=== PATIENT | male | born 1950 | race Caucasian/White ===

== ENCOUNTER 2016-09-07 18:15 | Observation (INO) ==
[2016-09-07] MEDS ORDERED: guaiFENesin/CODEINE 10 ML UDC PO PRN (19:17)
[2016-09-07] MEDS ORDERED: ACETAMINOPHEN 325 MG TABLET PO PRN (19:17)
[2016-09-07] MEDS ORDERED: traZODone HCL 50 MG TABLET PO PRN (19:17)
[2016-09-07] MEDS: SENNOSIDES/DOCUSATE SODIUM 1 TAB TABLET PO SCH ×2 (21:24→21:28)
[2016-09-07] MEDS: HEPARIN 5,000 UNIT/ML VIAL SQ SCH (21:24)
[2016-09-07] MEDS: DOCUSATE SODIUM 100 MG CAPSULE PO SCH ×2 (21:24→21:28)
[2016-09-07] MEDS: 0.9 % SODIUM CHLORIDE 10 ML SYRINGE IV SCH (21:29)
[2016-09-07] MEDS: AMIODARONE HCL 200 MG TABLET PO SCH ×2 (22:18→22:29)
[2016-09-07] MEDS: amLODIPine 10 MG TABLET PO SCH (22:19)
[2016-09-07] MEDS: LISINOPRIL 10 MG TABLET PO SCH ×2 (22:19→22:29)
[2016-09-07] MEDS: CARVEDILOL 12.5 MG TABLET PO SCH ×2 (22:24→22:29)
[2016-09-07] MEDS ORDERED: LISINOPRIL 10 MG TABLET ONE (22:29)
[2016-09-07] MEDS ORDERED: AMIODARONE HCL 200 MG TABLET ONE (22:29)
[2016-09-07] MEDS ORDERED: amLODIPine 5 MG TABLET ONE (22:30)
[2016-09-07] MEDS: ONDANSETRON 4 MG/2 ML VIAL IV PRN (23:10)
[2016-09-08] MEDS: 0.9 % SODIUM CHLORIDE 10 ML SYRINGE IV SCH ×2 (05:40→15:40)
[2016-09-08 06:32] LABS: Mean Cell Volume 95.5 fL (80.0-100.0); Mean Corpuscular HGB Conc 33.1 g/dL (31.0-36.0); Mean Corpuscular Hemoglobin 31.6 pg (26.0-34.0); Platelet Count 233 K/mcL (140-440); RBC 3.49 M/mcL (4.50-5.90); Red Cell Distribution Width 17.2 % (11.5-14.5)
[2016-09-08 07:06] LABS: ALT/SGPT 9 U/l (0-40); Albumin 3.6 gm/dL (3.2-5.2); Albumin/Globulin Ratio 0.8 (1.0-2.3); Alkaline Phosphatase 56 U/L (39-117); Bilirubin,Direct < 0.2 mg/dL (0.0-0.3); Blood Urea Nitrogen 55 mg/dl (8-23); Gamma Glutamyl Transpeptidase 17 U/L (8-61); Magnesium 2.5 mg/dL (1.6-2.5); Phosphorous 6.9 mg/dL (2.7-4.5); Uric Acid 6.2 mg/dL (2.5-8.0)
[2016-09-08 07:48] LABS: Anisocytosis 1+ (NONE SEEN); Eosinophils % (Manual) 1 % (0-7); Lymphocytes % 9 % (15-49); Monocytes % (Manual) 9 % (1-9); Platelet Estimate NORMAL (NORMAL); RBC Morphology ABNORMAL (NORMAL); Segmented Neutrophils % 81 % (38-78)
[2016-09-08] MEDS: ONDANSETRON 4 MG/2 ML VIAL IV PRN (07:50)
[2016-09-08] MEDS: LISINOPRIL 10 MG TABLET PO SCH (08:35)
[2016-09-08] MEDS: amLODIPine 10 MG TABLET PO SCH (08:35)
[2016-09-08] MEDS: MULTIVIT,THER IRON,CA,FA & MIN 1 TABLET PO SCH (08:36)
[2016-09-08] MEDS: CLOPIDOGREL 75 MG TABLET PO SCH (08:36)
[2016-09-08] MEDS: CARVEDILOL 12.5 MG TABLET PO SCH ×2 (08:36→16:51)
[2016-09-08] MEDS: FUROSEMIDE 40 MG TABLET PO SCH ×2 (08:36→23:59)
[2016-09-08] MEDS: AMIODARONE HCL 200 MG TABLET PO SCH ×2 (08:37→16:51)
[2016-09-08] MEDS: HEPARIN 5,000 UNIT/ML VIAL SQ SCH (08:38)
[2016-09-08] MEDS: DOCUSATE SODIUM 100 MG CAPSULE PO SCH (08:40)
[2016-09-08] MEDS ORDERED: NON FORMULARY MEDICATION 1 DOSE MISCELL (Carvedilol [Coreg] 25 MG) PO SCH (09:00)
--- NOTE | 2016-09-08 11:01 | Internal Med Progress Note ---
Medical - PN: Subj Patient information: Note initiated : 09/08/16 at 10:58 am Service Date, if different from initiated Date: [] Patient: Daily,Alfonzo inman 66 y/o M admitted on 09/07/16 for Weakness. Chief Complaint: [] Interval history: 09/[birth year]31-62-kugx-old male with history of ESRD on HD/severe ischemic cardiomyopathy ith EF 20%/diabetes and active smoker admitted with severe weakness and deconditioning and persistent cough for last 2 weeks and deconditioning leading to missed hemodialysis. nephrology consulted ongoing hemodialysis. Infectious workup ongoing. Patient admitted for observation 09/08- patient feeling better after hemodialysis however persistent cough. Await infectious workup. No overnight fever chills nausea vomiting. repeat hemodialysis today. no other concerns expressed by staff. Stable vitals/labs hemodynamics. no acute processes on chest imaging - Constitutional Vitals: Vital Signs Temp Pulse Resp BP Pulse Ox 98.5 F 68 14 146/63 90 09/08/16 07:32 09/08/16 07:32 09/08/16 07:32 09/08/16 07:32 09/08/16 07:34 Period Temp Pulse Resp BP Sys/Serna Pulse Ox Last 24 Hr 97.4 F-98.5 F 68-99 12-20 104-198/63-96 76-98 Intake and Output 09/07/16 09/08/16 09/08/16 21:59 05:59 13:59 Intake Total 360 / 360 Output Total 0 / 0 Balance 360 / 360 Weight 150 lb Intake & Output: Intake & Output 09/07/16 09/08/16 09/08/16 21:59 05:59 13:59 Intake Total 360 / 360 Output Total 0 / 0 Balance 360 / 360 Weight 150 lb Intake: Oral 360 / 360 Output: Void Amount 0 / 0 General appearance: cooperative, no acute distress Exam: grade 2 ESM alert oriented nonlabored breathing Anxious Ulcerated scabs upper extremity Medical - PN: Obj Da - Labs CBC & Chem 7: 09/08/16 04:09 09/08/16 04:20 Labs: Abnormal Lab Results 09/08/16 09/08/16 04:20 04:09 RBC 3.49 L Hgb 11.0 L Hct 33.3 L RDW 17.2 H Seg Neutrophils % 81 H Lymphocytes % 9 L Anisocytosis 1+ A Chloride 90 L Anion Gap 20.0 H BUN 55 H Creatinine 9.3 H* Phosphorus 6.9 H* Globulin 4.3 H Albumin/Globulin Ratio 0.8 L Triglycerides 340 H Meds: Medications Acetaminophen (Tylenol) 650 mg PO Q4-6HP PRN PRN Reason: PAIN/FEVER > 101 [facility] Admin: 09/08/16 08:37 Dose: 200 mg Amlodipine Besylate (Norvasc) 10 mg PO DAILY [facility] Last Admin: 09/07/16 22:19 Dose: 10 mg [facility]ilol ([facility]g) [facility] Last Admin: 09/08/16 08:36 Dose: 25 mg Clopidogrel Bisulfate (Plavix) 75 mg PO DAILY [facility] Last Admin: 09/08/16 08:36 Dose: 75 mg Docusate Sodium (Colace) 100 mg PO BID [facility] Last Admin: 09/08/16 08:40 Dose: Not Given Furosemide (Lasix) 80 mg PO BID [facility] Last Admin: 09/08/16 08:36 Dose: 80 mg Guaifenesin/Codeine Phosphate (Robitussin Ac) 10 ml PO Q4HP PRN PRN Reason: Cough Heparin Sodium (Porcine) (Heparin) 5,000 unit SQ Q12 [facility] Last Admin: 09/08/16 08:38 Dose: 5,000 unit Iron Carb/Multivit/Inspector Scales/Folic Acid (Multivitamin W/Minerals) 1 tab PO DAILY [facility] Last Admin: 09/08/16 08:36 Dose: 1 tab Lisinopril (Zestril) 10 mg PO DAILY [facility] Last Admin: 09/07/16 22:29 Dose: Not Given Ondansetron HCl (Zofran) 4 mg IV Q4-6HP PRN PRN Reason: Nausea And Vomiting Last Admin: 09/08/16 07:50 Dose: 4 mg Senna/Docusate Sodium (Senna Plus Tablet) 1 tab PO HS [facility] Last Admin: 09/07/16 21:28 Dose: Not Given Sodium Chloride (Saline Flush) 10 ml IV Q8 [facility] Last Admin: 09/08/16 05:40 Dose: 10 ml Trazodone HCl (Desyrel) 50 mg PO HSP PRN PRN Reason: Insomnia Medical - PN: A/P - Time Spent With Patient Total time spent is greater than 50% in coordination of care (as documented) at patient's floor/unit and/or counseling patient: 25 - 35 minutes (1) Weakness generalized Status: Acute Assessment and plan: * generalized weakness-physical therapy/ await infectious workup * ESRD on HD-ongoing hemodialysis * Ischemic cardiomyopathy with EF 20%- Coreg/Plavix * Nicotine dependence/COPD * skin lesions- 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
--- NOTE | 2016-09-08 11:30 | History and Physical Report ---
DATE OF ADMISSION: 09/07/2016 REASON FOR ADMISSION: Weakness, cough, significant lethargy and elevated creatinine requiring emergent hemodialysis due to failed hemodialysis session. HISTORY OF CHIEF COMPLAINT: The patient is a 66-year-old who underwent hemodialysis after he missed his last session, with elevated creatinine over 13, significant uremia, weakness. Postdialysis I was requested by Nephrology to admit the patient in light of significant weakness and high risk decompensation if discharged home from dialysis center. At the time of examination, the patient appears very fatigued and lethargic; however, he was able to talk in full sentences. He was able to provide most of the history. He has been feeling weak over the last few days. The patient has had end-stage renal disease and is on dialysis since July 2014. The patient also carries a history of poorly controlled hypertension and currently managed by Nephrology. He denies recent sick contacts. He has noted increasing shortness of breath or productive sputum. He also noticed diarrhea but denies dysuria, abdominal pain. He also denies joint pain, rash, but endorse to severe fatigue, myalgia, weakness, loss of appetite, and failure to function and perform activities of daily living over the last few days. Prior to coming to dialysis center, the patient was evaluated at [facility] [place] for progressive cough over the last couple of weeks; however, initial workup including chest imaging has been negative and has been managed conservatively. REVIEW OF SYSTEMS: A 10-point review of system was performed and is negative except the ones discussed above. PAST MEDICAL HISTORY: 1. History of hypertension. 2. End-stage renal disease on hemodialysis. 3. Type 2 diabetes mellitus. 4. Tobacco dependence. 5. History of COPD. 6. Significant neuropathy. 7. Ischemic cardiomyopathy with EF 20%. 8. History of chronic hepatitis C. 9. Chronic anemia. SURGICAL HISTORY: 1. History of back surgery. 2. Cardiac catheterization, status post stenting. 3. History of ESRD, on dialysis with fistula placement. CURRENT MEDICATIONS: 1. Coreg 25 mg b.i.d. 2. Amlodipine 10 mg. 3. Lisinopril 20 mg b.i.d. 4. Amiodarone 400 mg. 5. Furosemide 80 mg 6. Nitroglycerin 0.4 mg q.5 p.r.n. 7. Plavix 75 mg. 8. Triamcinolone as needed. 9. Hydrocodone/acetaminophen 1 tab q.4. 10. Benzonatate 100 mg q.6h. 11. Robitussin-DM 5 q.4h. SOCIAL HISTORY: The patient resides at [place]. He is to his , Maureen. He is on twice a week dialysis. He sees Bal Barnard, primary care physician and Cora Vaca, Rig Operator. He smokes half pack a day. No history of alcoholism. FAMILY HISTORY: Denies history of coronary artery disease, cancers, renal issues or CVA. Only positive remains hypertension in mother who at an early age of unknown causes. PHYSICAL EXAMINATION: GENERAL: The patient is alert, moderately distressed. BMI 21.9. Height 5 feet 9 inches. VITAL SIGNS: Blood pressure 142/93, respiratory rate 20, temperature 98.7, pulse 108, sats 99% on room air. HEENT: Pupils symmetric. Oral cavity is dry. No ear or nose discharge. Head is normocephalic and atraumatic. NECK: No lymphadenopathy. CHEST: S1, S2 regular. ESM grade II at the aortic area with minimal radiation to carotid. Diminished breath sounds at bases. ABDOMEN: Soft and nontender. LOWER EXTREMITIES: No cyanosis or clubbing. UPPER EXTREMITIES: Significant for multiple scabs along with ulcerative skin lesions. PSYCHIATRIC: Alert, cooperative, anxious, but no agitation or hallucination. NEURO: Moving all 4 extremities, neuropathic changes. LABS AND IMAGING: White count 5.7, hemoglobin 11, sodium 131, potassium 4.5, creatinine 9.3, BUN 55 improved after dialysis. Initial creatinine 13, phosphorus 6.9, triglycerides 340. X-ray chest: Emphysematous chest, but no acute findings on preliminary report. ASSESSMENT AND PLAN: A 66-year-old with a significant cough, shortness of breath and deconditioning in light of history of ischemic cardiomyopathy, COPD, active smoker, admitted for continued dialysis and observation. 1. ESRD- Missed hemodialysis, continue hemodialysis as per Nephrology. 2. Cough and significant deconditioning. Rule out infectious etiology, may represent progression of end-stage cardiomyopathy with EF 20%. However, we will await infectious workup including sputum along with blood cultures and rule out influenza. 3. Prior medical issues will be managed on home medications, including history of ischemic cardiomyopathy. Continue Coreg/Plavix/amiodarone/TERESA inhibitor. 4. Hypertension. Continue amlodipine/Coreg. ESRD management per Nephrology. Patient will be admitted for observation while undergoing physical therapy, infectious workup and hemodialysis. AA:lilli Job ID: [id number] Doc ID: [id number] Peña Barnard MD [facility]
--- NOTE | 2016-09-08 12:59 | XRay Report ---
CLINICAL INFORMATION: Cough TECHNIQUE: AP upright portable chest x-ray COMPARISON: 09/07/2016, 08/31/2016 FINDINGS: Lungs are negative. No pulmonary parenchymal infiltrate or mass. Heart size and vascularity are normal. No pulmonary edema. No pulmonary congestion. Flaca and mediastinum are negative. No pleural fluid. IMPRESSION: Negative AP portable chest x-ray. Interpreted and Authenticated by: Lupillo Culver 09/08/16
[2016-09-08] MEDS: NICOTINE 21 MG PATCH TOPICAL SCH ×2 (15:39→15:43)
[2016-09-08] MEDS: cefTRIAXone 2 GM in DEXTROSE 5% IN WATER 50 ML IV SCH (16:18)
--- NOTE | 2016-09-08 16:53 | Nephrology Consult Note ---
History of Present Illness - Reason for Consult Patient information: Note initiated : 09/08/16 at 4:50 pm Service Date, if different from initiated Date: [] Patient: Alfonzo Todd 66 y/o M admitted on 09/07/16 for Severe Weakness. Chief Complaint: [] Consult date: 09/07/16 end stage renal disease Requesting physician: Peña Cornelius - Chief Complaint cough - History of Present Illness Mr David todd is a 66 y/o white male with PMH of HTN, CHF, ESRD ON hd AND OTHER MEDICAL ISSUES who is been admitted for uremia Patient has had viral URI for the last 1- 2weeks, he did not come for his dialysis for the last 3 days he has had profound nausea, vomiting , hicoughs went to ED in [place], was found to have BUN of 121, s.creat of 18.85 and phos of more than 8 he was transferred here for acute dialysis his BP was uncontrolled and given his uremic symptoms we decided to admit him he denies CP, SOB He denies edema he states that he has not been able to eat for 3 days Review of Systems All systems PM: reviewed and no additional remarkable complaints except as stated (as in HPI) Past History Past medical history: esrd on HD CAD, CHF Hep c recently treated, cirrhosis of liver anemia renal osteodystrophy cryoglobulinemia + uncontrolled HTN non com[pliance Past surgical history: s/p AVF surgery s/p stent placement Past family history: not pertinent Past social history: [place] currently unemployed denies any addictions Medications and Allergies Home Medications Medication Instructions Recorded Confirmed Type Amiodarone HCl [Cordarone] 200 mg PO BIDCC 03/16/16 09/07/16 History Clopidogrel [Plavix] 75 mg PO DAILY 03/16/16 09/07/16 History Lisinopril [Zestril] 10 mg PO QDAY 09/07/16 09/07/16 History Allergies Allergy/AdvReac Type Severity Reaction Status Date / Time No Known Drug Allergies Allergy Verified 03/16/16 14:33 Exam - Vital Signs Vital signs: Temp Pulse Resp BP Pulse Ox 98.5 F 65 14 139/64 93 09/08/16 11:00 09/08/16 11:00 09/08/16 11:00 09/08/16 11:00 09/08/16 11:00 - General Appearance General appearance: appears started age, cachectic EENT: mucous membranes moist Neck: no JVD Respiratory: clear Cardiology: no rub, no edema, normal S1, normal S2 Gastrointestinal: no tenderness, no guarding Integumentary: rash Neurologic: no focal deficit, alert and oriented x3 Musculoskeletal: no erythema, no cyanosis Psychiatric: mood/affect appropriate Results - Lab Results 09/08/16 04:09 09/08/16 04:20 Most recent lab results Calcium 8.8 mg/dl (8.6-10.4) 09/08/16 04:20 Phosphorus 6.9 mg/dL (2.7-4.5) H* 09/08/16 04:20 Magnesium 2.5 mg/dL (1.6-2.5) 09/08/16 04:20 Assessment and Plan (1) ESRD (end stage renal disease) on dialysis dialysis done on 2 consecutive days, yesterday and today improved uremic symptoms next Hd on sat Anemia of CKD: much improved HTN: control improved with resuming home meds acute bronchitis: elevated pro calcitonin, will get treated with antibiotics Will follow along appreciate Dr Cornelius's help in managing this pt Status: Acute
[2016-09-08] MEDS ORDERED: AMIODARONE HCL 200 MG TABLET PO SCH (17:30)
[2016-09-09] MEDS: SENNOSIDES/DOCUSATE SODIUM 1 TAB TABLET PO SCH
[2016-09-09] MEDS: 0.9 % SODIUM CHLORIDE 10 ML SYRINGE IV SCH ×2 (00:04→05:04)
[2016-09-09 06:28] LABS: Mean Cell Volume 96.2 fL (80.0-100.0); Mean Corpuscular HGB Conc 32.5 g/dL (31.0-36.0); Mean Corpuscular Hemoglobin 31.2 pg (26.0-34.0); Platelet Count 270 K/mcL (140-440); RBC 3.66 M/mcL (4.50-5.90); Red Cell Distribution Width 17.3 % (11.5-14.5)
[2016-09-09 07:08] LABS: ALT/SGPT 12 U/l (0-40); Albumin 3.7 gm/dL (3.2-5.2); Albumin/Globulin Ratio 0.8 (1.0-2.3); Alkaline Phosphatase 56 U/L (39-117); Bilirubin,Direct < 0.2 mg/dL (0.0-0.3); Blood Urea Nitrogen 29 mg/dl (8-23); Gamma Glutamyl Transpeptidase 17 U/L (8-61); Magnesium 2.4 mg/dL (1.6-2.5); Phosphorous 4.9 mg/dL (2.7-4.5); Uric Acid 4.2 mg/dL (2.5-8.0)
[2016-09-09] MEDS: CARVEDILOL 12.5 MG TABLET PO SCH (07:41)
[2016-09-09] MEDS: AMIODARONE HCL 200 MG TABLET PO SCH (07:41)
[2016-09-09 08:50] LABS: Anisocytosis 1+ (NONE SEEN); Basophils % (Manual) 1 % (0-2); Eosinophils % (Manual) 1 % (0-7); Lymphocytes % 9 % (15-49); Monocytes % (Manual) 9 % (1-9); Platelet Estimate NORMAL (NORMAL); RBC Morphology ABNORM (NORMAL); Segmented Neutrophils % 80 % (38-78)
[2016-09-09] MEDS: DOCUSATE SODIUM 100 MG CAPSULE PO SCH ×2 (09:30)
[2016-09-09] MEDS: CLOPIDOGREL 75 MG TABLET PO SCH (09:30)
[2016-09-09] MEDS: amLODIPine 10 MG TABLET PO SCH (09:30)
[2016-09-09] MEDS: FUROSEMIDE 40 MG TABLET PO SCH (09:30)
[2016-09-09] MEDS: MULTIVIT,THER IRON,CA,FA & MIN 1 TABLET PO SCH (09:30)
[2016-09-09] MEDS: LISINOPRIL 10 MG TABLET PO SCH (09:30)
[2016-09-09] MEDS: HEPARIN 5,000 UNIT/ML VIAL SQ SCH ×2 (09:30)
[2016-09-09] MEDS: cefTRIAXone 2 GM in DEXTROSE 5% IN WATER 50 ML IV SCH (09:38)
[2016-09-09] MEDS: NICOTINE 21 MG PATCH TOPICAL SCH (09:43)
--- NOTE | 2016-09-09 10:01 | Discharge Summary ---
Discharge Plan - Patient/Caregiver Discharge Instructions Discharge Summary: DISCHARGE DIAGNOSIS * Generalized weakness-clinically responded well physical therapy/crystalloids/ hemodialysis, currently feels at baseline. discharging home * Question infectious etiology for weakness-elevated pro calcitonin. however negative blood work/stool studies/imaging Responding well to Rocephin. Continue additional 5 days oral cephalosporin * ESRD on HD-responded well to hemodialysis. 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 PCP to arrange skin biopsies as outpatient * Hypertension on amlodipine/Coreg * full code [facility] 09/0701-26-mmyv-old male with history of ESRD on HD/severe ischemic cardiomyopathy ith EF 20%/diabetes and active smoker admitted with severe weakness and deconditioning and persistent cough for last 2 weeks and deconditioning leading to missed hemodialysis. nephrology consulted ongoing hemodialysis. Infectious workup ongoing. Patient admitted for observation 09/08- patient feeling better after hemodialysis however persistent cough. Await infectious workup. No overnight fever chills nausea vomiting. repeat hemodialysis today. no other concerns expressed by staff. Stable vitals/labs hemodynamics. no acute processes on chest imaging.elevated pro calcitonin. started on empiric antibiotic coverage. C. difficile negative. 2-patient feels remarkably better and feels at baseline. Requesting discharge. Afebrile. Stable labs. Status post 2 sessions of hemodialysis. continue antibiotics for additional 5 days for empiric coverage n light of elevated procalcitonin. No source identified as yet. Negative cultures to date. Activity: as per physical therapy, increase activity as tolerated, resume usual activities as tolerated Diet: Renal/Consistent Carbs Additional Instructions: Follow-up PCP in 5 days follow-up nephrology for HD as scheduled Follow-up airplane electrical repairer for skin biopsy in light of upper extremity ulcerative/ scabbed lesion I recommend primary care physician to check CBC BMP UA as a posthospital follow- up Antibiotics for 5 days Continue aggressive bowel regimen to prevent constipation Continue fall precautions All meals on chair sitting upright at 90 degrees to prevent aspiration Return to ER if worsening fever chills shortness of breath, diarrhea, bleeding Review risk and side effect profile of medications including antibiotics. Side effect may include mild to severe reaction including rash, diarrhea, cdiff and even which can be prevented by close follow-up with PCP Refrain from smoking and alcohol Continue diet and activity as advised Discussed importance of medication adherence Please review medication list with patient prior to discharge Please schedule follow-up with PCP/Providers prior to discharge and provide printouts Portions of this chart may have been created with [employer] voice recognition software. Occasional wrong-word or ?sound-like? substitutions may have occurred due to the inherent limitations of voice recognition software. Please read the chart carefully and recognize, using context, where the substitutions have occurred. CC- PCP Prescriptions: Cefdinir 300 mg PO BID #10 capsule - Follow up Plan Disposition: Home, Self-Care Prognosis: Fair Rehab Potential: Fair I certify that the patient requires SNF services.: No Overall status at discharge: patient is progressing back to baseline
== END 2016-09-09 11:10 | disposition home or self-care (01) ==
LOC: MEDSUR
PROVIDERS: ADMIT Internal Medicine; ATTEND Internal Medicine